=== PATIENT | female | born 1995 | race Caucasian/White ===

== ENCOUNTER 2022-07-26 04:49 | Emergency (ER) | payer BC, SELFPAY ==
[2022-07-26 05:00] VITALS: BP 125/84; PULSE 65; RESP 18; TEMP 36.7; O2SAT 99; BMI 43.0
--- NOTE | 2022-07-26 05:24 | CRLHL7_ITS ---
For Patients: As a result of the Century Cures Act, medical imaging exams and procedure reports are released immediately into your electronic medical record. You may view this report before your referring provider. If you have questions, please contact your health care provider. INDICATION: Left flank pain. TECHNIQUE: CT abdomen and pelvis without contrast, stone protocol. COMPARISON: CT abdomen pelvis September 02, 2020. FINDINGS: Kidney/ureters: Kidneys are normal in caliber. There is a 2 mm stone within the distal left ureter resulting in mild to moderate hydronephrosis. Additional punctate bilateral renal calculi are noted. Liver/gallbladder/bile ducts: Hepatomegaly and hepatic steatosis.. Gallbladder is normal without visualized stones or inflammation. No biliary dilatation. Spleen/pancreas/adrenal glands: The spleen, adrenal glands and pancreas are within normal limits. GI tract: The bowel is unremarkable. Normal appendix. Abdominal wall/omentum/peritoneum: No free air or significant free fluid. No mass or inflammation. Lymph nodes: No lymphadenopathy. Pelvis: Unremarkable pelvis. Lower chest: Unremarkable. IMPRESSION: There is a 2 mm stone within the distal left ureter resulting in mild to moderate hydronephrosis. Additional punctate bilateral renal calculi are noted. Hepatomegaly and hepatic steatosis. Please note that all CT scans at this facility use dose modulation, iterative reconstruction, and/or weight-based dosing when appropriate to reduce radiation dose to as low as reasonably achievable. Dictated by Eddie Garner MD @ 07/26/2022 6:33:09 AM (Electronically Signed)
[2022-07-26] MEDS: ONDANSETRON 2 MG/ML inj 4 MG IVP (05:30)
[2022-07-26] MEDS: 0.9 % SODIUM CHLORIDE 1000 ml 1,000 ML IV (05:30)
[2022-07-26 05:31] VITALS: TEMP 36.7
[2022-07-26] MEDS: KETOROLAC 15 MG/ML inj IVP (05:31)
[2022-07-26 05:44] LABS: Basophils Percent Auto 0.3 % (0.0-3.0); Eosinophils Percent Auto 5.3 % (0.0-7.0); Hematocrit 40.4 % (33.0-51.0); Immature Granulocytes Pct Auto 0.3 %; Lymphocytes Percent Auto 16.5 % (20-44); Mean Corpuscular HGB Conc 32 gm/dL (32-36); Mean Corpuscular Hemoglobin 28 pg (26-34); Mean Corpuscular Volume 86 fL (80-100); Monocytes Percent Auto 6.1 % (0.0-11.0); Neutrophils Percent Auto 71.5 % (42.0-72.0); Platelet Count* 308 K/uL (140-440); RDW Coefficient of Variation % 13.8 % (11.5-15.5); Red Blood Count 4.72 m/uL (4.00-5.20); White Blood Count* 15.02 K/uL (4.50-11.00)
[2022-07-26 05:47] LABS: Appearance Urine Clear (Clear); Bilirubin Urine Negative (Negative); Blood Urine Trace-intact (Negative); Color Urine Yellow (Yellow); Glucose Urine Negative (Negative); Ketones Urine Trace (Negative); Leukocyte Esterase Urine Negative (Negative); Nitrite Urine Negative (Negative); Protein Urine Negative (Negative); Specific Gravity Urine 1.025 (1.000-1.030); Urobilinogen Urine 0.2 (0.2-1.0)
[2022-07-26 05:47] LABS: Slide Review Reflex No
--- NOTE | 2022-07-26 05:47 | ED.GENADULT ---
HPI - General Adult General Chief complaint: Flank Pain Stated complaint: left side abdominal pain, kidney stones Time Seen by Provider: 07/26/22 04:51 Source: patient Mode of arrival: ambulatory Limitations: no limitations History of Present Illness HPI narrative: Patient is a 27-year-old woman who presents for evaluation of left-sided flank and abdominal pain which started 3 hours prior to presentation. She has a history of kidney stones and says this feels similar. She has not had dysuria or hematuria. She has had 2 episodes of vomiting. She denies fevers or chills. Rates pain is severe. Did not take medications at home. Last period was mid June and was normal, no suspicion of . No previous abdominal surgeries, has a history hepatic steatosis and of cyclic vomiting syndrome although she says that she has not had significant problems for the past year. Denies allergies, does not smoke cigarettes. Related Data Home Medications Medication Instructions Recorded Confirmed metformin 1,000 mg tablet 1,000 mg PO BID 07/26/22 07/26/22 methocarbamol 500 mg tablet 500 - 1,000 mg PO 3XD PRN 07/26/22 07/26/22 propranolol 20 mg tablet 20 mg PO BID 07/26/22 07/26/22 sumatriptan succinate 25 mg tablet 25 mg PO DIRECTED 07/26/22 07/26/22 Allergies Allergy/AdvReac Type Severity Reaction Status Date / Time codeine AdvReac Mild Nausea/Vomi Verified 07/26/22 05:02 ting Review of Systems Status of ROS: Reports: 10 or more systems reviewed and unremarkable except as noted in History and below [facility] Medical History (Updated 07/26/22 @ 06:37 by Venita Escudero MD) Asthma ?J45.909 - Unspecified asthma, uncomplicated (ICD-10) Calculus of kidney ?N20.0 - Calculus of kidney (ICD-10) Morbid obesity ?E66.01 - Morbid (severe) obesity due to excess calories (ICD-10) Surgical History History of ankle surgery ?Z98.890 - Other specified postprocedural states (ICD-10) Social History Smoking Status: Never smoker Second hand tobacco smoke exposure: No How often do you have a drink containing alcohol: never How often do you have six or more drinks on one occasion: Never AUDIT-C Alcohol total score: 0 Non-prescribed substance use: denies use Exam Narrative: Exam Narrative: Vital signs as noted above. In general, an alert, nontoxic woman. Head: Normocephalic, atraumatic. Eyes: Pupils are equal reactive. Extraocular movements are full. Conjunctivae are normal. ENT: Mucous membranes are moist. Throat is normal. Neck: Supple without lymphadenopathy. Heart: Regular rate and rhythm. No murmur or rub. Lungs: Clear bilaterally. No increased work of breathing, crackles or wheezes. No CVA tenderness. Abdomen: Soft nondistended. Exam limited by body habitus. Diffuse tenderness left abdomen, no rebound guarding or rigidity. Extremities: Well perfused. No edema. No calf tenderness. Pulses intact. Neurologic: Patient is alert and oriented to person and place. Speech is fluent. Face is symmetric. Moves all extremities equally. Affect: Normal. Skin: Warm and dry. Well perfused. Const: Vital Signs, click to edit/add: Vital Signs - 24 hr 07/26/22 05:00 07/26/22 05:31 07/26/22 06:00 Temperature 98.0 F 98.0 F 98.4 F Pulse Rate [Right Pulse Oximeter] 65 Respiratory Rate 18 Blood Pressure [Ri ght Upper Arm] 125/84 Pulse Oximetry 99 Oxygen Delivery Me thod Room Air 07/26/22 06:00 07/26/22 06:52 07/26/22 06:53 Temperature 98.0 F 98.0 F Pulse Rate [Right Pulse Oximeter] 74 74 Respiratory Rate 18 18 Blood Pressure [Ri ght Upper Arm] 118/74 118/74 Pulse Oximetry 99 99 Oxygen Delivery Me thod Room Air Documenting provider has reviewed patient's vital signs: yes Course Course Hospital Course: We will place an IV, give some fluids, Toradol, Zofran. Labs are ordered, CT scan without contrast to look for kidney stone. I reviewed her previous records, she did have a CT scan 2 years ago which time she had right-sided kidney stones. UA is pending. Other possibilities include ovarian torsion or cyst, bowel obstruction or volvulus, ectopic , pyelonephritis, among others. CT scan by my review shows left-sided hydronephrosis, radiology notes a 2 mm stone left UVJ. Hepatic steatosis is noted, this is old. She did have 4 mg of morphine following the Toradol. No further vomiting. Pain is improved. UA is negative for evidence of infection. CRP unremarkable, white blood cell count is mildly elevated at 15, possibly demargination. No evidence otherwise of infection. She is stable for discharge home. I would anticipate that this will pass without difficulty given its size but if she does not pass the stone in the next few days to week, follow-up with Urology. Otherwise, return for uncontrolled pain, vomiting, fevers. Vital Signs Vital signs: Initial Vital Signs Temperature 98.0 F 07/26/22 05:00 Temperature Source Temporal Artery Scan 07/26/22 05:00 Pulse Rate 65 07/26/22 05:00 Respiratory Rate 18 07/26/22 05:00 Blood Pressure 125/84 07/26/22 05:00 Blood Pressure Mean 97 07/26/22 05:00 Blood Pressure Position Sitting 07/26/22 05:00 Pulse Oximetry 99 07/26/22 05:00 Oxygen Delivery Method Room Air 07/26/22 05:00 Vital Signs Temperature 98.0 F 07/26/22 05:00 Pulse Rate 65 07/26/22 05:00 Respiratory Rate 18 07/26/22 05:00 Blood Pressure 125/84 07/26/22 05:00 Pulse Oximetry 99 07/26/22 05:00 Oxygen Delivery Method Room Air 07/26/22 05:00 Temperature 98.0 F 07/26/22 06:53 Pulse Rate 74 07/26/22 06:53 Respiratory Rate 18 07/26/22 06:53 Blood Pressure 118/74 07/26/22 06:53 Pulse Oximetry 99 07/26/22 06:52 Oxygen Delivery Method Room Air 07/26/22 06:52 Medical Decision Making Lab Data Labs: Lab Results 07/26/22 07/26/22 Range/Units 05:30 05:35 WBC 15.02 H (4.50-11.00) K/uL RBC 4.72 (4.00-5.20) m/uL Hgb 13.0 (12.0-16.0) gm/dL Hct 40.4 (33.0-51.0) % MCV 86 (80-100) fL MCH 28 (26-34) pg MCHC 32 (32-36) gm/dL RDW Coeff of Jay 13.8 (11.5-15.5) % Plt Count 308 (140-440) K/uL Neut % (Auto) 71.5 (42.0-72.0) % Lymph % (Auto) 16.5 L (20-44) % Ford % (Auto) 6.1 (0.0-11.0) % Eos % (Auto) 5.3 (0.0-7.0) % Baso % (Auto) 0.3 (0.0-3.0) % Neut # (Auto) 10.70 H (1.7-7.0) K/uL Lymph # (Auto) 2.50 (0.90-2.90) K/uL Ford # (Auto) 0.90 (0.00-0.90) K/UL Eos # (Auto) 0.80 H (0.00-0.50) K/uL Baso # (Auto) 0.00 (0.00-0.30) K/uL Sodium 138 (135-149) mmol/L Potassium 3.7 (3.6-5.1) mmol/L Chloride 107 (96-114) mmol/L Carbon Dioxide 22 (20-32) mmol/L BUN 16 (5-24) mg/dL Creatinine 1.0 (0.5-1.5) mg/dL Estimated Creat Clear 91.38 Estimated GFR 79 ml/min Glucose 162 H (60-115) mg/dL Calcium 9.1 (8.4-10.6) mg/dL C-Reactive Protein 2.2 H (0.5-1.0) mg/dL Urine Color Yellow (Yellow) Urine Appearance Clear (Clear) Urine pH 6.0 (5.0-8.5) Ur Specific [place] 1.025 (1.000-1.030) Urine Protein Negative (Negative) Urine Glucose (UA) Negative (Negative) Urine Ketones Trace A (Negative) Urine Blood Trace-intact A (Negative) Urine Nitrite Negative (Negative) Urine Bilirubin Negative (Negative) Urine Urobilinogen 0.2 (0.2-1.0) Ur Leukocyte Esterase Negative (Negative) Urine RBC 0-2 (0-2) Urine WBC 0-2 (0-5) Ur Squamous Epith Cells Few (None-Few) Urine Bacteria None (None) Urine HCG, Qual Negative (Negative) Discharge Plan Discharge Clinical Impression: Calculus of distal left ureter Patient Disposition: Home, Self-Care Condition: Improved Instructions: Ureteral Stones (ED) Additional Instructions: Push fluids, strain urine. Ibuprofen 400 mg 3 times daily with food. Oxycodone if needed for more severe pain. Zofran if needed for nausea/vomiting. Return for fevers, chills, uncontrolled vomiting or pain. Your stone is only 2 mm and should pass on its own without difficulty, but if you do not pass it in the next several days to week, follow-up with Urology. Prescriptions: No Action methocarbamol 500 mg tablet 500 - 1,000 mg PO 3XD PRN sumatriptan succinate 25 mg tablet 25 mg PO DIRECTED metformin 1,000 mg tablet 1,000 mg PO BID propranolol 20 mg tablet 20 mg PO BID Follow Up/Referrals: Krunal Yan MD [Primary Care Provider] - Stand Alone Forms: imgix Info Instructions
[2022-07-26 05:55] LABS: RBC Urine 0-2 (0-2); WBC Urine 0-2 (0-5)
[2022-07-26 05:56] LABS: Squamous Epithelial Cell Urine Few (None-Few); Ur HCG Qualitative* Negative (Negative)
--- OUTSIDE RECORDS SUMMARY | 2022-07-26 05:58 | XMS_ITS | Continuity of Care Document ---
Author Name Unknown Organization [facility] Address [address] [place] [address] Care Team Providers Care Development Manager Name Role Phone [facility] Unavailable Unav ailable Procedures Procedure Date NEEDLE LOCALIZATION BY XRAY [id number]/INJECT, JOINT/BURSA Withou t Ultrasound DRAIN/INJECT, JOINT/BURSA Without Ultras ound MAJOR JOINT OR BURSA INJ WITH ULTRASOUND MAJOR JOINT OR BURSA INJ WITH ULTRASOUND Inj for sacroiliac jt anesth Advance Directives Directive Yes / No Effective Date File Name No Information Encounters Encounter Description Practice Location Reason(s) For Visit Diagnoses Date Provider Providers Copied on Encounter [facility], [address] [place] [address], [id number], [facility] No Information [facility]. [address] [place] [address], [id number], [place]. tel:[phone] Referring Provider: Zina Hahn, [address] [place], [address]. tel:[phone] [facility], [address] [place] [address], [id number], [facility] No Information [facility]. [address] [place] [address], [id number], [place]. tel:[phone] Referring Provider: Federica Molina, [address] [place], [address]. tel:[phone] [facility] [place], [address] [facility] [place], [place], [id number], [facility] [place] No Information [facility] [place]. [address] [facility] [place], [id number], . tel:[phone] Referring Provider: Zina Hahn, [address] [place], [address]. tel:[phone] Family History Family Member Type Diagnosis Age At Onset No Information Payers Payer name Insurance type Covered constitution party ID Del gutierrez(s) Blue Plus Medicaid [id number] Social History Type Description Quantity Date Captured Comments Sex Female Smoking Status No Information Chief Complaint And Reason For Visit No Information Reason For Referral Reason For Referral No Information Plan Of Treatment Date Type Action Status No Information History Of Present Illness Encounter Date Complaint History Of Prese nt Illness No Information Functional Status Date Functional Assessmen t No Information Instructions Date Instruction Additional Infor mation No Information Assessments Type Assessment Date No Information Patient Care Teams Name Effective Dates (start - stop) Status Members No Information
--- OUTSIDE RECORDS SUMMARY | 2022-07-26 05:58 | XMS_ITS | Continuity of Care Document ---
Author Name Unknown Organization [facility] Address [address] [place] [address] [address] Phone Care Team Providers Care Crushing Mill Operator Name Role Phone [facility] Unavailable Unava ilable Procedures Procedure Date MAJOR JOINT OR BURSA INJ WITH ULTRASOUND MAJOR JOINT OR BURSA INJ WITH ULTRASOUND Advance Directives Directive Yes / No Effective Date File Name No Information Encounters Encounter Description Practice Location Reason(s) For Visit Diagnoses Date Provider Providers Copied on Encounter [facility], [address] [place] [address], [id number], [place] tel:[phone] [facility] No Information 2 [facility]. [address] [place] [address], [id number], [place]. tel:[phone] Referring Provider: Federica Molina, [address] [place], [address] . tel:[phone] Family History Family Member Type Diagnosis Age At Onset No Information Payers Payer name Insurance type Covered green party ID Authoriza tion(s) Blue Plus Medicaid [place] [id number] Social History Type Description Quantity Date Captured [...]
--- OUTSIDE RECORDS SUMMARY | 2022-07-26 05:58 | XMS_ITS | Continuity of Care Document ---
Author Name Unknown Organization [facility] enter Address [address] [place] [address] [address] Phone Care Team Providers Care System Admin Name Role Phone [facility] Unavailable Unava ilable Procedures Procedure Date MAJOR JOINT OR BURSA INJ WITH ULTRASOUND MAJOR JOINT OR BURSA INJ WITH ULTRASOUND Advance Directives Directive Yes / No Effective Date File Name No Information Encounters Encounter Description Practice Location Reason(s) For Visit Diagnoses Date Provider Providers Copied on Encounter [facility], [address] [place] [address], [id number], [place] tel:[phone] [facility] No Information [address] [facility]. [address] [place] [address], [id number], [place]. tel:[phone] Referring Provider: Federica Molina, [address] [place], [address] . tel:[phone] Family History Family Member Type Diagnosis Age At Onset No Information Payers Payer name Insurance type Covered constitution party ID Authoriza tion(s) Blue Plus Medicaid BL [id number] Social History Type Description Quantity Date Captured [...]
--- OUTSIDE RECORDS SUMMARY | 2022-07-26 05:58 | XMS_ITS | Continuity of Care Document ---
Author Name Unknown Organization [facility] Address [address] [address] [place] [address] Phone Care Team Providers Care Shrimper Name Role Phone Chris Lucero MD Unavailable Unavailable Allergies, Adverse Reactions, Alerts Substance Reaction Status Criticality lactose Active No Information soy Active No Information latex Active No Information Medications Medication Instructions Dosage Effective Dates (start - stop) Status Comments propranolol 20 mg tablet take 1 tablet by mouth twice daily for cyclic vomiting. - Active ondansetron HCl 8 mg tablet take 1 tablet by oral route every 8 hours as needed for nausea - Active metformin 1,000 mg tablet take 1 tablet by oral route 2 times every day with morning and evening meals 1000 MG - Active ProAir RespiClick 90 mcg/actuation breath activated inhale 2 puff by inhalation route every 4 - 6 hours as needed 180 MCG - Active magnesium 250 mg tablet take 1 tablet by oral route every day 1 tablet - Active CITRACAL-D3 (unknown strength) take 1 tablet by oral route every day Not Available - Active Vitamin D3 5,000 unit tablet take 1 tablet by oral route every day 1 tablet - Active multivitamin tablet take 1 tablet by oral route every day 1 tablet - Active oxycodone 5 mg capsule take 1 capsule by oral route every 6 hours as needed for pain 5 MG - Active Procedures Procedure Date Ugi Endo; W/bx 1/mx Level Iv-surg Path Gross/micro 19 Office Cons New/estab Mod Advance Directives Directive Yes / No Effective Date File Name No Information Encounters Encounter Description Practice Location Reason(s) For Visit Diagnoses Date Provider Providers Copied on Encounter [facility], [address] [address], [place], [id number], [place] tel:[phone] [facility] No Information 0 Nic Perez. [address] [place] [address], [facility], [facility] [place], [id number] , [place]. tel: [phone] [facility], [address] [address], [place], [id number], [place] tel:[phone] [facility] No Information 0 Nic Perez. [address] [place] [address], [place] [address], [place], [id number] , [place]. tel: [phone] [facility], [address] [address], [place], [id number], [place] tel:[phone] [facility] Cyclical vomiting, not intractableDiarrhe a, unspecifiedNausea with vomiting, unspecifiedLower abdominal pain, unspecifiedDiarrhe a, unspecified 9 Nic Perez. [address] [place] [address], [place] [address], [facility] [place], [id number] , [place]. tel: [phone] Referring Provider: Referral Self. Office Cons New/estab Mod [facility], [address] [address], [place], [id number], [place] tel:[phone] [facility] GI Symptoms or Concerns (chief complaint) Lower abdominal painDiarrhea, unspecified typeNon-intractabl e cyclical vomiting with nauseaDietary counseling and surveillance 9 Nic Perez. [address] [place] [address], [place] [address], [facility] [place], [id number] , [place]. tel: [phone] Referring Provider: Krunal Salcido, [address] [place] [address], [id number]. tel:[phone] Family History Family Member Type Diagnosis Age At Onset Father Problem (finding) diabetes mellitus type 2 Payers Payer name Insurance type Covered green party ID Del gutierrez(s) [place] [facility] [id number] Social History Type Description Quantity Date Captured Comments Alcohol Use Details Unknown Caffeine Use Details Unknown Tobacco Use Status No Information Smoking Status No Information Sex Female Chief Complaint And Reason For Visit No Information Reason For Referral Reason For Referral No Information Plan Of Treatment Date Type Action Status Goal Lifestyle education regardin g diet completed Referral Ordered: EGD Appointment date/timeframe: 09/01/2018 ordered History Of Present Illness Encounter Date Complaint History Of Prese nt Illness GI Symptoms or Concerns I had th e pleasure of meeting Ms. Indira Akins, a 23-year-old woman, seen in consultation at the request of Dr. Krunal Yan for evaluation of abdominal pain, irregular bowel habits with tendency towards diarrhea, nausea and vomiting, fatty liver disease, and irregular abdominal imaging.Indira says that her symptoms began approximately 7 months ago, and were initially intermittent, but now occur on a daily basis. She describes a host of symptoms primarily focused on severe lower abdominal pain bilaterally, loose bowel movements around 2 or 3 times a day, fairly constant nausea with intermittent vomiting of food that she ate earlier.Her abdominal pain she describes as sharp and severe. Interestingly, she has pain with simply light touching of her skin around her abdomen, let alone when palpation is deeper. She can wake up with the pain and it can be present throughout the day. No specific triggers or relieving factors other than oxycodone, which she has been using to ma Functional Status Date Functional Assessmen t No Information Instructions Date Instruction Additional Infor barbara 1. We will perform a n upper endoscopy to help move forward the evaluation of her nausea, vomiting, and abdominal pain.2. I am going to empirically start her on propranolol for cyclic vomiting syndrome.3. If no improvement with propranolol and if the EGD is nondiagnostic, then either a higher dose of propranolol versus trial of nortriptyline.4. She may benefit from going to pain management clinic for abdominal wall injection.5. With regard to the inpatient colonoscopy, frankly I am not sure that this can be accomplished. I am seeing primary care providers that will be able to admit patients who are paraplegic or in skilled nursing for inpatient colonoscopy preparation, but aside from that, I am not sure that her insurance would cover a colonoscopy as an inpatient. We spent time today discussing various different preparations that we could perform as an outpatient to do a colonoscopy and she in a fact refused all of these.I will see her back in about a month and I will be in touch with her when I have the results of her endoscopy.Thank you so much for involving me in the care of Ms. Akins. Related to Lower abdominal pain Lifestyle education regarding di et Related to Dietary counseling and surveillance Assessments Type Assessment Date No Information Patient Care Teams Name Effective Dates (start - stop) Status Members No Information
--- OUTSIDE RECORDS SUMMARY | 2022-07-26 05:58 | XMS_ITS | Continuity of Care Document ---
Author Name Unknown Organization [facility] Address [address] [place] [address] Care Team Providers Care District Commercial Superintendent Name Role Phone [facility] Unavailable Unav ailable Procedures Procedure Date NEEDLE LOCALIZATION BY XRAY [id number]/INJECT, JOINT/BURSA Withou t Ultrasound DRAIN/INJECT, JOINT/BURSA Without Ultras ound MAJOR JOINT OR BURSA INJ WITH ULTRASOUND MAJOR JOINT OR BURSA INJ WITH ULTRASOUND Inj for sacroiliac jt anesth Advance Directives Directive Yes / No Effective Date File Name No Information Encounters Encounter Description Practice Location Reason(s) For Visit Diagnoses Date Provider Providers Copied on Encounter [facility], [address] [place] [address], [id number], [facility] No Information [facility]. [address] [place] [address], [id number], [place]. tel:[phone] Referring Provider: Zina Hahn, [address] [place], [address]. tel:[phone] [facility], [address] [place] [address], [id number], [facility] No Information [facility]. [address] [place] [address], [id number], [place]. tel:[phone] Referring Provider: Federica Molina, [address] [place], [address]. tel:[phone] [facility] [place], [address] [facility] [place], [place], [id number], [facility] [place] No Information [facility] [place]. [address] [facility] [place], [id number], . tel:[phone] Referring Provider: Zina Hahn, [address] [place], [address]. tel:[phone] Family History Family Member Type Diagnosis Age At Onset No Information Payers Payer name Insurance type Covered democrat ID Del gutierrez(s) Blue Plus Medicaid [id number] Social History Type Description Quantity Date Captured [...]
--- OUTSIDE RECORDS SUMMARY | 2022-07-26 05:58 | XMS_ITS | Continuity of Care Document ---
Author Name Unknown Organization [facility] zacarias Address [address] [place] [address] Phone Care Team Providers Care Route Contractor Name Role Phone Zina Hahn DO Unavailable Unavailable Allergies, Adverse Reactions, Alerts Substance Reaction Status Criticality lactose Active No Information hydrocodone Active No Information latex Active No Information Medications Medication Instructions Dosage Effective Dates (start - stop) Status Comments sumatriptan 25 mg tablet take 1 tablet by oral route once with fluids may repeat after 2 hours if headache returns, not to exceed 200mgin 24hrs - Active tizanidine 2 mg tablet take 1 - 2 tablet by ORAL route at bedtime as needed - Active methocarbamol 500 mg tablet take 1-2 tablet by ORAL route 3 times every day PRN - Active methocarbamol 500 mg tablet take 1 tablet by ORAL route 1-3 times every day PRN - Active topiramate 50 mg tablet TAKE 1 TABLET BY MOUTH TWICE DAILY - Active metformin 1,000 mg tablet take 1 tablet by oral route 2 times every day with morning and evening meals 1000 MG - Active propranolol 20 mg tablet take 1 tablet by oral route 2 times every day 20 MG - Active Procedures Procedure Date DRAIN/INJECT, JOINT/BURSA NEEDLE LOCALIZATION BY Flouroscopy Drug Urine Toxology With Chromatography Drug test def 1-7 classes Foll-up eval q3mo opiod tx OFFICE/OUTPATIENT VISIT, EST DRAIN/INJECT, JOINT/BURSA Foll-up eval q3mo opiod tx OFFICE VISIT, EST TELEMEDICINE 22 Foll-up eval q3mo opiod tx OFFICE/OUTPATIENT VISIT, EST BILATERAL MAJOR JOINT/BURSA DRAIN/INJ WI TH ULTRASO BILATERAL MAJOR JOINT/BURSA DRAIN/INJ WI TH ULTRASO Foll-up eval q3mo opiod tx OFFICE VISIT, EST TELEMEDICINE Foll-up eval q3mo opiod tx OFFICE VISIT, EST TELEMEDICINE Foll-up eval q3mo opiod tx OFFICE VISIT, EST TELEMEDICINE Injection Sacroiliac Right OFFICE/OUTPATIENT VISIT, EST Foll-up eval q3mo opiod tx OFFICE VISIT, EST TELEMEDICINE Foll-up eval q3mo opiod tx OFFICE VISIT, EST TELEMEDICINE Foll-up eval q3mo opiod tx OFFICE VISIT, EST TELEMEDICINE Foll-up eval q3mo opiod tx OFFICE/OUTPATIENT VISIT, EST ROUTINE BLOOD DRAW OFFICE/OUTPATIENT VISIT, EST OFFICE/OUTPATIENT VISIT, EST OFFICE/OUTPATIENT VISIT, NEW Drug Urine Toxology With Chromatography Advance Directives Directive Yes / No Effective Date File Name No Information Encounters Encounter Description Practice Location Reason(s) For Visit Diagnoses Date Provider Providers Copied on Encounter [facility], [address], [place], [id number] , [place] tel:[phone] [facility] [place] Pain in right hipPain in left hip 3 Jovani Izaguirre. [address], [place], [id number], [place]. tel:[phone] Referring Provider: Cali White, [address] [place] [address], [id number]. tel:[phone] [facility], [address] [place] [address], [id number] , [place] tel:[phone] [facility] [place] Pain in left hipPain in right hip Jun- 3 Dago Katherine. [address] [place] [address], [id number], [place]. tel:[phone] [place] [address] Pain Clinic, [address] [place] [address], [id number] , [place] tel:[phone] [facility] [place] No Information 3 Dago Katherine. [address] [place] [address], [id number], [place]. tel:[phone] OFFICE/OUTPAT IENT VISIT, EST [facility], [address] [place] [address], [id number] , [place] tel:[phone] [facility] [place] right hip pain (chief complaint) Chronic migraine without aura, intractable, without status migrainosusCyc lical vomiting w/ refractory migraineChroni c pain syndromePain in left shoulderPain in left hipPain in right hipSacroiliiti s, not elsewhere classifiedLow back pain, unspecifiedTro chanteric bursitis, right hipTrochanteri c bursitis, left hipMyalgia, other siteGeneralize d abdominal painOther care home (current) drug therapyEncount er for therapeutic drug level monitoring 3 Dago Katherine. [address] [place] [address], [id number], [place]. tel:[phone] Referring Provider: Cali White, [address] [place] [address], [id number]. tel:[phone] [facility], [address] [place] [address], [id number] , [place] [phone] [facility] Pain in right hipPain in left hip 2 Jesse Stallworth. [address] [place] [address], [id number], [place]. tel:[phone] Referring Provider: Cali White, [address] [place] [address], [id number]. tel:[phone] OFFICE VISIT, EST TELEMEDICINE [facility], [address] [place] [address], [id number] , [place] [phone] [facility] Lori right hip pain (chief complaint) Chronic migraine without aura, intractable, without status migrainosusCyc lical vomiting w/ refractory migraineChroni c pain syndromePain in left shoulderSacroi liitis, not elsewhere classifiedLow back pain, unspecifiedTro chanteric bursitis, right hipTrochanteri c bursitis, left hipMyalgia, other siteGeneralize d abdominal painOther extermination supervisor (current) drug therapyPain in left hipPain in right hip 0 2 Dago Katherine. [address] [place] [address], [id number], [place]. tel:[phone] Referring Provider: Cali White, [address] [place] [address], [id number]. tel:[phone] [facility], [address] [place] [address], [id number] , [place] tel:[phone] [facility] Low back pain, unspecifiedTro chanteric bursitis, left hipTrochanteri c bursitis, right hip 2 Dago Katherine. [address] [place] [address], [id number], [place]. tel:[phone] OFFICE/OUTPAT IENT VISIT, [facility], [address] [place] [address], [id number] , [place] [phone] [facility] [place] right hip pain (chief complaint) Cyclical vomiting w/ refractory migraineChroni c pain syndromePain in left shoulderSacroi liitis, not elsewhere classifiedLow back pain, unspecifiedTro chanteric bursitis, right hipTrochanteri c bursitis, left hipGeneralized abdominal painOther extermination supervisor (current) drug therapyMyalgia , other siteChronic migraine without aura, intractable, without status migrainosus 2 Dago Katherine. [address] [place] [address], [id number], [place]. tel:[phone] Referring Provider: Cali White, [address] [place] [address], [id number]. tel:[phone] [facility], [address] [place] [address], [id number] , [place] tel:[phone] [facility] Trochanteric bursitis, right hipTrochanteri c bursitis, left hip Apr-2 0 2 Jesse Stallworth. [address] [place] [address], [id number], [place]. tel:[phone] Referring Provider: Cali White, [address] [place] [address], [id number]. tel:[phone] [facility], [address] [place] [address], [id number] , [place] tel:[phone] [facility] Trochanteric bursitis, left hipTrochanteri c bursitis, right hip Apr-0 2 Dago Katherine. [address] [place] [address], [id number], [place]. tel:[phone] [facility], [address] [place] [address], [id number] , [place] tel:[phone] [facility] [place] No Information 2 Jesse Stallworth. [address] [place] [address], [id number], [place]. tel:[phone] Referring Provider: Cali White, [address] [place] [address], [id number]. tel:[phone] OFFICE VISIT, EST TELEMEDICINE [facility], [address] [place] [address], [id number] , [place] tel:[phone] [facility] [place] right hip pain (chief complaint) Chronic pain syndromeGenera lized abdominal painCyclical vomiting w/ refractory migraineLow back pain, unspecifiedPai n in left shoulderSacroi liitis, not elsewhere classifiedOthe r extermination supervisor (current) drug therapyTrochan teric bursitis, right hipTrochanteri c bursitis, left hip 1 Dago Katherine. [address] [place] [address], [id number], [place]. tel:[phone] OFFICE VISIT, EST TELEMEDICINE [facility], [address] [place] [address], [id number] , [place] tel:[phone] [facility] [place] right hip pain (chief complaint) Chronic pain syndromeGenera lized abdominal painCyclical vomiting w/ refractory migraineLow back painPain in left shoulderSacroi liitis, not elsewhere classifiedOthe r care home (current) drug therapy 1 Dago Katherine. [address] [place] [address], [id number], [place]. tel:[phone] Referring Provider: Cali White, [address] [place] [address], [id number]. tel:[phone] OFFICE VISIT, EST TELEMEDICINE [facility], [address] [place] [address], [id number] , [place] tel:[phone] [facility] right hip pain (chief complaint) Chronic pain syndromeGenera lized abdominal painCyclical vomiting w/ refractory migraineLow back painPain in left shoulderOther care home (current) drug therapySacroil iitis, not elsewhere classified 1 Dago Katherine. [address] [place] [address], [id number], [place]. tel:[phone] Referring Provider: Cali hWite, [address] [place] [address], [id number]. tel:[phone] [facility], [address] [place] [address], [id number] , [place] tel:[phone] [facility] [place] Sacroiliitis, not elsewhere classified 1 Jovani Izaguirre. [address] [place] [address], [id number], [place]. tel:[phone] Referring Provider: Cali White, [address] [place] [address], [id number]. tel:[phone] OFFICE/OUTPAT IENT VISIT, [facility], [address] [place] [address], [id number] , [place] tel:[phone] [facility] right hip pain (chief complaint) Sacroiliitis, not elsewhere classifiedChro zacarias pain syndromeGenera lized abdominal painCyclical vomiting w/ refractory migraineLow back painPain in left shoulderOther extermination supervisor (current) drug therapy 0- 1 Tata Jay. [address] [place] [address], [id number], [place]. tel:[phone] Referring Provider: Cali White, [address] [place] [address], [id number]. tel:[phone] OFFICE VISIT, [facility], [address] [place] [address], [id number] , [place] tel:[phone] [facility] Abdominal pain (chief complaint) Chronic pain syndromeGenera lized abdominal painCyclical vomiting w/ refractory migraineLow back painPain in left shoulderLong term (current) use of opiate analgesic 0 Dago Katherine. [address] [place] [address], [id number], [place]. tel:[phone] Referring Provider: Cali White, [address] [place] [address], [id number]. tel:[phone] OFFICE VISIT, [facility], [address] [place] [address], [id number] , [place] tel:[phone] [facility] Abdominal pain (chief complaint) Chronic pain syndromeGenera lized abdominal painCyclical vomiting w/ refractory migraineLow back painLong term (current) use of opiate analgesicPain in left shoulder 0 Dago Katherine. [address] [place] [address], [id number], [place]. tel:[phone] Referring Provider: Cali White, [address] [place] [address], [id number]. tel:[phone] OFFICE VISIT, [facility], [address] [place] [address], [id number] , [place] tel:[phone] [facility] Abdominal pain (chief complaint) Chronic pain syndromeGenera lized abdominal painCyclical vomiting w/ refractory migraineLow back painLong term (current) use of opiate analgesic 0 Dago Katherine. [address] [place] [address], [id number], [place]. tel:[phone] Referring Provider: Cali White, [address] [place] [address], [id number]. tel:[phone] OFFICE/OUTPAT IENT VISIT, [facility], [address] [place] [address], [id number] , [place] tel:[phone] [facility] [place] Abdominal pain (chief complaint) Chronic pain syndromeGenera lized abdominal painCyclical vomiting w/ refractory migraineLong term (current) use of opiate analgesicLow back painEncounter for therapeutic drug level monitoring 0 Dago Katherine. [address] [place] [address], [id number], [place]. tel:[phone] Referring Provider: Cali White, [address] [place] [address], [id number]. tel:[phone] OFFICE/OUTPAT IENT VISIT, [facility], [address] [place] [address], [id number] , [place] tel:[phone] [facility] [place] Abdominal pain (chief complaint) Generalized abdominal painCyclical vomiting w/ refractory migraineLong term (current) use of opiate analgesic Sep-0 -201 9 Dago Katherine. [address] [place] [address], [id number], [place]. tel:[phone] Referring Provider: Cali White, [address] [place] [address], [id number]. tel:[phone] OFFICE/OUTPAT IENT VISIT, [facility], [address] [place] [address], [id number] , [place] tel:[phone] [facility] [place] Abdominal pain (chief complaint) Generalized abdominal painCyclical vomiting w/ refractory migraineOther care home (current) drug therapyLong term (current) use of opiate analgesic Dago Katherine. [address] [place] [address], [id number], [place]. tel:[phone] Referring Provider: Cali White, [address] [place] [address], [id number]. tel:[phone] OFFICE/OUTPAT IENT VISIT, [facility], [address] [place] [address], [id number] , [place] [phone] [facility] [place] Abdominal pain (chief complaint) Chronic pain syndromeEncoun ter for therapeutic drug level monitoringOthe r care home (current) drug therapyGeneral ized abdominal painCyclical vomiting w/ refractory migraine 9 No Information Referring Provider: ANNEL Castillo MELISSA [address], [place], [address]. tel:[phone] Family History Family Member Type Diagnosis Age At Onset No Information Payers Payer name Insurance type Covered green party ID Authoriza brenda(s) [employer] [id number] Social History Type Description Quantity Date Captured Comments Sex Female Smoking Status No Information Chief Complaint And Reason For Visit No Information Reason For Referral Reason For Referral No Information Plan Of Treatment Date Type Action Status Goal Order Annual PT. Due on due Goal AST (SGOT). Due on due Goal OARS. 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 Due on 023 due Goal Creatinine. Due on due Goal ALT (SGPT). Due on due Goal [place] Paperwork. Due on due Goal UDT. Due on due Goal Height. Due on d ue Goal Weight. Due on d ue Goal Hepatitis C screening. Due o n due Goal PHQ-9. Due on du e Goal Update Social History. Due o n due Goal Review Allergy List. Due on due Goal Unhealthy drug u se screening. Due on due Goal Medication Recon ciliation. Due on due Goal Tobacco Use. Due on 023 due Goal OARS. Due on due Goal [place] Paperwork. Due on due Goal UDT. Due on due Goal ALT (SGPT). Due on due Goal AST (SGOT). 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 Due on due Goal Creatinine. Due on due Goal Order Annual PT. Due on due Goal Height. Due on d ue Goal Update Social History. Due o n due Goal Unhealthy drug u se screening. Due on due Goal Tobacco Use. Due on 023 due Goal Review Allergy List. Due on due Goal Hepatitis C screening. Due o n due Goal PHQ-9. Due on du e Goal Weight. Due on d ue Goal Medication Recon ciliation. 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 Due on due Goal UDT. Due on due Goal ALT (SGPT). Due on due Goal Order Annual PT. Due on due Goal Creatinine. Due on due Goal OARS. Due on due Goal [place] Paperwork. Due on due Goal AST (SGOT). Due on due Goal Height. Due on d ue Goal Hepatitis C screening. Due o n due Goal Tobacco Use. Due on due Goal Update Social History. Due o n due Goal Review Allergy List. Due on due Goal Weight. Due on d ue Goal PHQ-9. Due on du e Goal Unhealthy drug u se screening. Due on due Goal Medication Recon ciliation. Due on due Goal Order Annual PT. Due on due Goal UDT. Due on due Goal [place] Paperwork. Due on due Goal OARS. Due on due Goal Creatinine. 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 Due on due Goal AST (SGOT). Due on due Goal ALT (SGPT). Due on due Goal Tobacco Use. Due on due Goal Medication Recon ciliation. Due on due Goal Height. Due on d ue Goal Weight. Due on d ue Goal Unhealthy drug u se screening. Due on due Goal Update Social History. Due o n due Goal Review Allergy List. Due on due Goal Hepatitis C screening. Due o n due Goal PHQ-9. 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 Due on due Goal Creatinine. Due on due Goal [place] Paperwork. Due on due Goal ALT (SGPT). Due on due Goal AST (SGOT). Due on due Goal UDT. Due on due Goal Order Annual PT. Due on due Goal OARS. Due on due Goal Review Allergy List. Due on due Goal Tobacco Use. Due on due Goal Unhealthy drug u se screening. Due on due Goal Update Social History. Due o n due Goal Hepatitis C screening. Due o n due Goal Height. Due on d ue Goal Weight. Due on d ue Goal PHQ-9. Due on du e Goal Medication Recon ciliation. Due on due Goal [place] Paperwork. Due on due Goal UDT. Due on due Goal Order Annual PT. 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 Due on due Goal AST (SGOT). Due on due Goal OARS. Due on due Goal Creatinine. Due on due Goal ALT (SGPT). Due on due Goal Weight. Due on d ue Goal Height. Due on d ue Goal Review Allergy List. Due on due Goal Tobacco Use. Due on due Goal Medication Recon ciliation. Due on due Goal Hepatitis C screening. Due o n due Goal PHQ-9. Due on du e Goal Update Social History. Due o n due Goal Unhealthy drug u se screening. Due on due Goal Creatinine. Due on due Goal [place] Paperwork. Due on due Goal Order Annual PT. 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 Due on due Goal AST (SGOT). Due on due Goal OARS. Due on due Goal ALT (SGPT). Due on due Goal UDT. Due on due Goal Weight. Due on d ue Goal Tobacco Use. Due on due Goal Hepatitis C screening. Due o n due Goal Review Allergy List. Due on due Goal Height. Due on d ue Goal PHQ-9. Due on du e Goal Unhealthy drug u se screening. Due on due Goal Update Social History. Due o n due Goal Medication Recon ciliation. Due on due Goal ALT (SGPT). Due on due Goal UDT. Due on due Goal AST (SGOT). Due on due Goal [place] Paperwork. Due on due Goal OARS. 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 Due on due Goal Order Annual PT. Due on due Goal Creatinine. Due on due Goal Height. Due on d ue Goal PHQ-9. Due on du e Goal Weight. Due on d ue Goal Update Social History. Due o n due Goal Medication Recon ciliation. Due on due Goal Review Allergy List. Due on due Goal Tobacco Use. Due on due Goal Height. Due on d ue Goal PHQ-9. Due on du e Goal Weight. Due on d ue Goal Update Social History. Due o n due Goal Medication Recon ciliation. Due on due Goal Review Allergy List. Due on due Goal Tobacco Use. Due on due Goal ALT (SGPT). Due on due Goal UDT. Due on due Goal AST (SGOT). Due on due Goal [place] Paperwork. Due on due Goal OARS. 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 Due on due Goal Order Annual PT. Due on due Goal Creatinine. Due on due Referral Ordered: MRI LUMBAR SPINE W/O DYE ordered Future Order: Lab Order COMPLIAN CE DRUG ANALYSIS, URINE, WITH MED REPORT ([id number]), Ordered on: Ordered Future Order: Lab Order Drug Lora t Def 22+ Classes ([id number]), Ordered on: Ordered History Of Present Illness Encounter Date Complaint History Of Prese nt Illness Comments: Indira rehman resents for a follow up and medications refill for ongoing abdominal and hip pain.Abdominal, and L shoulder pain have been overall stable since last seen. Lower back pain has been worse. Typical flares depending on activity level. Following with [facility] regarding Bilateral hip (R>) pain and was advised of early onset arthritis. Bilateral hip joint injections on 03/26/22 with 60% relief. Participates in HEP as able. Ongoing relief from medical cannabis. Migraines have been worse recently. Neurology consult is scheduled for next month.No further questions or concerns. right hip pain Duration chronic . The problem is fluctuating. Location of pain is right. Pertinent negatives include fever. right hip pain Severity level i s moderate. Duration chronic. The problem is worsening. Location of pain is right. Comments: Indira rehman resents for a virtual follow up and medications refill for ongoing abdominal and hip pain.Low back, abdominal, and L shoulder pain have been overall stable since last seen. Typical flares depending on activity level. Following with [facility] regarding Bilateral hip (R>) pain and was advised of early onset arthritis. Recently completed joint injections with benefit. Requesting to repeat these through [facility] when able. Participates in HEP as able. Ongoing relief from medical cannabis. Migraines have been worse recently. Open to neurology consult as discussed today.No further questions or concerns. right hip pain Severity level i s moderate. Duration chronic. The problem is fluctuating. It occurs constantly. Location of pain is right. The client describes the pain as sharp and tingling. Symptom is aggravated by sitting, bending, lifting, housework, movement and prolonged positions. Relieving factors include ice, physical therapy, stretching, changing positions, heat, lying down, massage and walking. Pertinent negatives include fever. Comments: Indira rehman resents for a follow up and medications refill for ongoing abdominal and hip pain.Low back, abdominal, and L shoulder pain have been overall stable since last seen. Bilateral hip (R>) pain has been worse. Repeat injections on 05/01 and 08/05 did not offer the same degree of relief as they have in the past. Also notes muscle relaxants haven't been as helpful to her pain. Participates in HEP as able. Actively in PT.No further questions or concerns. right hip pain Severity level i s moderate. Duration chronic. The problem is worsening. It occurs constantly. Location of pain is right. The patient describes the pain as an ache, sharp, tingling and numbness. Symptom is aggravated by lifting weight, prolonged positions and housework. Relieving factors include ice, rest, physical therapy, stretching, changing positions, heat, lying down, massage, rx meds and sitting. right hip pain (comments) Indira rehman resents for a virtual follow up and medications refill for ongoing abdominal and hip pain.Low back, abdominal, and L shoulder pain have been overall stable since last seen. Flares noted to migraines/vomiting with heat. Bilateral hip pain has been more bothersome as she has not been able to repeat GT bursa injections through ortho. Inquires if she can pursue these through [facility]. Participates in HEP as able. Actively in PT.No further questions or concerns. right hip pain (comments) Indira rehman resents for a virtual follow up and medications refill for ongoing abdominal and hip pain.Low back, abdominal, L shoulder, and hip pain have been overall stable since last seen. Flares noted to migraines/vomiting with heat. She consulted with ortho regarding hip pain and completed imaging and GT bursa injection with significant relief. Participates in HEP as able. Actively in PT and is requesting addition sessions today.No further questions or concerns. right hip pain Duration chronic . The problem is stable. It occurs constantly. Location of pain is right. The patient describes the pain as an ache, sharp and tingling. numbness. Symptom is aggravated by bending, lifting, housework, movement and prolonged positions. Relieving factors include rest, physical therapy, stretching, changing positions, massage and sitting. right hip pain Duration chronic . The problem is stable. The pain is recurring. Location of pain is right. The patient describes the pain as an ache, numbness, sharp and tingling. Symptom is aggravated by lifting weight, bending, housework, movement and prolonged positions. Relieving factors include ice, rest, physical therapy, stretching, changing positions, chiropractic, heat, lying down, massage, rx meds and walking. right hip pain (comments) Indira rehman resents for a virtual follow up and medications refill for ongoing abdominal pain.Notes she has stopped taking oxycodone. R SI joint injection on 06/12 with significant relief for 1 week, now wearing off. Feels like the pain is deeper in the hip joint. Expresses interest to return to PT at this time. Also open to referral to hip specialist as discussed today. Participates in HEP as able. No further questions or concerns. right hip pain (comments) Indira rehman resents for follow-up for ongoing right hip pain. She reports pain in the right low back and buttocks. Denies groin pain. Radiates down her posterior thigh. Described as aching and sharp. Worse with prolonged sitting and laying. Worse when sitting to standing position.She is doing ongoing PT sessions with Dr. Sukumar Pettit at [facility]. Abdominal and L shoulder pain is overall stable. Tizanidine is most helpful in the evenings for pain and sleep, but she is unable to tolerate this during the day.No further questions or concerns. right hip pain Severity level i s severe. Duration chronic. The problem is worsening. It occurs constantly. Location of pain is right lateral hip, posterior hip. There is radiation of pain to the right. The patient describes the pain as an ache and sharp. Symptom is aggravated by climbing stairs, lying down, prolonged standing and sitting. Relieving factors include physical therapy and stretching. Abdominal pain Severity is 7. D uration is chronic. It occurs constantly. The problem is unchanged. The patient describes it as aching, sharp, tingling and numbness. Symptom is aggravated by bending over, lifting, housework, movement and prolonged positions. Relieving factors include lying down, rest, changing positions, heat, massage, rx meds and PT. Abdominal pain (comments) Indira rehman resents for a virtual follow up and medications refill for ongoing abdominal pain.Reports oxycodone has not been very beneficial to her pain, therefore she has not been utilizing it as much which explains her surplus today. Significant relief with PT. Abdominal, back, and L shoulder pain is overall stable. Participates in HEP as able. Tizanidine is most helpful in the evenings for pain and sleep, but she is unable to tolerate this during the day.No further questions or concerns. Abdominal pain Severity is 7. D uration is chronic. It occurs constantly. The problem is unchanged. The patient describes it as aching, sharp and numbness. Symptom is aggravated by movement, lying down, housework, lifting and prolonged positioning. Relieving factors include changing positions, heat, ice, massage and rx meds. Abdominal pain (comments) Eliezer rodríguez is here for follow up and medications refill for ongoing abdominal pain.Reports she has been following with a physical therapist regarding pinched nerve in her left shoulder which she believes is a contributing factor to her back and migraine pain. Pain has somewhat improved, however migraines have persisted if not worsened. Pending results from PT, she plans to pursue imaging. Abdominal pain has remained stable. No further questions or concerns. Abdominal pain Severity is 6. D uration is chronic. It occurs constantly. The problem is worse. The patient describes it as aching, burning and sharp. Symptom is aggravated by daily activities. Relieving factors include changing positions, heat, rx meds and massage. Abdominal pain (comments) Eliezer rodríguez is here for follow up and medications refill for ongoing abdominal pain.Migraines and vomiting well managed with medications. Some increased abdominal pain r/t menstrual cycle. Ongoing elevated back pain. Remains interested in updated PT and imaging. She has not yet be able to register for the medical cannabis program d/t cost. No further questions or concerns. Abdominal pain (comments) Eliezer rodríguez is here for follow up and medications refill for ongoing abdominal pain. Denies any recent changes to her pain. She has not yet completed certified for medical cannabis but will plan to do so soon. Does note some improvements with vomiting with her new acupuncture piercing. Patient did not specify a percentage pain relief with medication. Denies side effects from current medication regimen. Takes Oxycodone 5mg PRN- #120 tablets had lasted about 4 months. Topamax and propranolol continues to provided benefit. No other concerns today. Abdominal pain Severity is 2. D uration is chronic. It occurs constantly. The problem is unchanged. Location is diffuse and back. The patient describes it as aching and sharp. Symptom is aggravated by bending, lifting, housework and prolonged positions. Relieving factors include rest, changing positions, chiropractic, heat, lying andmeds. Abdominal pain (comments) Eliezer rodríguez is here for follow up and medications refill for ongoing abdominal pain. Denies any recent changes to her pain. She has not yet completed certification for medical cannabis but will plan to do so soon. Reports decreased frequency of vomiting this month but c/o increased hot flashesPatient presents with no medication- due out 11/24. Medications bring pain level down from 8 to 3 out of 10. Denies side effects from current medication regimen. States she has decreased Topiramate from TID to BID due to SE of nightmares. Medications continue to provide pain relief and allow her to do everyday tasks. No other concerns today. Abdominal pain Severity is 3. D uration is chronic. It occurs constantly. The problem is unchanged. Location is diffuse. The patient describes it as aching. Symptom is aggravated by bending over, lifting, housework, movement and prolonged positions. Relieving factors include changing positions, chiropractic, ice, meds and lying. Abdominal pain (comments) Indira i s here for follow up and medications refill. She has not been able to start use of medical cannabis as she has been waiting until her 's next paycheck to pay for the registration fee. She does admits that she has been utilizing recreational cannabis for the meantime. She is requesting to have [facility] assume management of her opioid medications as discussed last OV. Has trialed Topamax which provides relief and open into titrating up. No other concerns today. Abdominal pain Severity is 4. D uration is chronic. It occurs constantly. The problem is unchanged. Location is LLQ, RLQ. The patient describes it as aching and bloating. Relieving factors include rest, medications and cannabis. Abdominal pain (comments) Indira i s in for an initial consult referred by her PCP, Dr. Krunal Yan of [facility]. 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 Her condition had a sudden onset approx. 7 months ago.Indira has not participated in PT for her condition. She has also not tried injections in the past. Indira is currently taking Zofran for nausea. NSAIDs she has tried includes ibuprofen. She has tried hydrocodone and tramadol in the past. Has not tried any neuropathics or muscle relaxants. She is interested in trying medical cannabis for her pain as she believes it will provide her with relief without having to take opioid medications. Admits to using recreational marijuana which provides her with relief. Abdominal pain Severity is 5. D uration is > 1 hour. It occurs constantly. The problem is unchanged. Location is LUQ, RUQ, LLQ, RLQ. The patient describes it as aching and sharp. Functional Status Date Functional Assessmen t No Information Instructions Date Instruction Additional Infor mation No Information Assessments Type Assessment Date No Information Patient Care Teams Name Effective Dates (start - stop) Status Members No Information
--- OUTSIDE RECORDS SUMMARY | 2022-07-26 05:58 | XMS_ITS | Continuity of Care Document ---
Author Name Unknown Organization [facility] zacarias Address [address] [place] [address] Phone Care Team Providers Care Nursing Teacher Name Role Phone Zina Hahn DO Unavailable [...] Diagnoses Date Provider Providers Copied on Encounter [facility], [address], [place], [id number] , [place] tel:[phone] [facility] [place] Pain in right hipPain in left hip 3 Jovani Izaguirre. [address] [place], [place], [id number], [place]. tel:[phone] Referring Provider: Cali White, [address] [place] [address], [id number]. tel:[phone] [facility], [address] [place] [address], [id number] , [place] tel:[phone] [facility] [place] Pain in left hipPain in right hip Jun- 3 Dago Katherine. [address] [place] [address], [id number], [place]. tel:[phone] [place] [address] Pain Clinic, [address] [place] [address], [id number] , [place] tel:[phone] [facility] [place] No Information 3 Dago Katherine. [address] [place] [address], [id number], [place]. tel:[phone] OFFICE/OUTPAT IENT VISIT, EST [facility], [address] [place] [address], [id number] , [place] tel:[phone] [facility] [place] right hip pain (chief complaint) Chronic migraine without aura, intractable, without status migrainosusCyc lical vomiting w/ refractory migraineChroni c pain syndromePain in left shoulderPain in left hipPain in right hipSacroiliiti s, not elsewhere classifiedLow back pain, unspecifiedTro chanteric bursitis, right hipTrochanteri c bursitis, left hipMyalgia, other siteGeneralize d abdominal painOther shelter (current) drug therapyEncount er for therapeutic drug level monitoring 3 Dago Katherine. [address] [place] [address], [id number], [place]. tel:[phone] Referring Provider: Cali White, [address] [place] [address], [id number]. tel:[phone] [facility], [address] [place] [address], [id number] , [place] [phone] [facility] Pain in right hipPain in left hip 2 Jesse Stallworth. [address] [place] [address], [id number], [place]. tel:[phone] Referring Provider: Cali White, [address] [place] [address], [id number]. tel:[phone] OFFICE VISIT, EST TELEMEDICINE [facility], [address] [place] [address], [id number] , [place] [phone] [facility] Lori right hip pain (chief complaint) Chronic migraine without aura, intractable, without status migrainosusCyc lical vomiting w/ refractory migraineChroni c pain syndromePain in left shoulderSacroi liitis, not elsewhere classifiedLow back pain, unspecifiedTro chanteric bursitis, right hipTrochanteri c bursitis, left hipMyalgia, other siteGeneralize d abdominal painOther petroleum terminal plant operator (current) drug therapyPain in left hipPain in right hip 0 2 Dago Katherine. [address] [place] [address], [id number], [place]. tel:[phone] Referring Provider: Cali White, [address] [place] [address], [id number]. tel:[phone] [facility], [address] [place] [address], [id number] , [place] tel:[phone] [facility] Low back pain, unspecifiedTro chanteric bursitis, left hipTrochanteri c bursitis, right hip 2 Dago Katherine. [address] [place] [address], [id number], [place]. tel:[phone] OFFICE/OUTPAT IENT VISIT, [facility], [address] [place] [address], [id number] , [place] [phone] [facility] [place] right hip pain (chief complaint) Cyclical vomiting w/ refractory migraineChroni c pain syndromePain in left shoulderSacroi liitis, not elsewhere classifiedLow back pain, unspecifiedTro chanteric bursitis, right hipTrochanteri c bursitis, left hipGeneralized abdominal painOther petroleum terminal plant operator (current) drug therapyMyalgia , other siteChronic migraine without aura, intractable, without status migrainosus 2 Dago Katherine. [address] [place] [address], [id number], [place]. tel:[phone] Referring Provider: Cali White, [address] [place] [address], [id number]. tel:[phone] [facility], [address] [place] [address], [id number] , [place] tel:[phone] [facility] Trochanteric bursitis, right hipTrochanteri c bursitis, left hip Apr-2 0 2 Jesse Stallworth. [address] [place] [address], [id number], [place]. tel:[phone] Referring Provider: Cali White, [address] [place] [address], [id number]. tel:[phone] [facility], [address] [place] [address], [id number] , [place] tel:[phone] [facility] Trochanteric bursitis, left hipTrochanteri c bursitis, right hip Apr-0 2 Dago Katherine. [address] [place] [address], [id number], [place]. tel:[phone] [facility], [address] [place] [address], [id number] , [place] tel:[phone] [facility] [place] No Information 2 Jesse Stallworth. [address] [place] [address], [id number], [place]. tel:[phone] Referring Provider: Cali White, [address] [place] [address], [id number]. tel:[phone] OFFICE VISIT, EST TELEMEDICINE [facility], [address] [place] [address], [id number] , [place] tel:[phone] [facility] [place] right hip pain (chief complaint) Chronic pain syndromeGenera lized abdominal painCyclical vomiting w/ refractory migraineLow back pain, unspecifiedPai n in left shoulderSacroi liitis, not elsewhere classifiedOthe r petroleum terminal plant operator (current) drug therapyTrochan teric bursitis, right hipTrochanteri c bursitis, left hip 1 Dago Katherine. [address] [place] [address], [id number], [place]. tel:[phone] OFFICE VISIT, EST TELEMEDICINE [facility], [address] [place] [address], [id number] , [place] tel:[phone] [facility] [place] right hip pain (chief complaint) Chronic pain syndromeGenera lized abdominal painCyclical vomiting w/ refractory migraineLow back painPain in left shoulderSacroi liitis, not elsewhere classifiedOthe r shelter (current) drug therapy 1 Dago Katherine. [address] [place] [address], [id number], [place]. tel:[phone] Referring Provider: Cali White, [address] [place] [address], [id number]. tel:[phone] OFFICE VISIT, EST TELEMEDICINE [facility], [address] [place] [address], [id number] , [place] tel:[phone] [facility] right hip pain (chief complaint) Chronic pain syndromeGenera lized abdominal painCyclical vomiting w/ refractory migraineLow back painPain in left shoulderOther shelter (current) drug therapySacroil iitis, not elsewhere classified 1 Dago Katherine. [address] [place] [address], [id number], [place]. tel:[phone] Referring Provider: Cali White, [address] [place] [address], [id number]. tel:[phone] [facility], [address] [place] [address], [id number] , [place] tel:[phone] [facility] [place] Sacroiliitis, not elsewhere classified 1 Jovani Izaguirre. [address] [place] [address], [id number], [place]. tel:[phone] Referring Provider: Cali White, [address] [place] [address], [id number]. tel:[phone] OFFICE/OUTPAT IENT VISIT, [facility], [address] [place] [address], [id number] , [place] tel:[phone] [facility] right hip pain (chief complaint) Sacroiliitis, not elsewhere classifiedChro zacarias pain syndromeGenera lized abdominal painCyclical vomiting w/ refractory migraineLow back painPain in left shoulderOther petroleum terminal plant operator (current) drug therapy 0- 1 Tata Jay. [address] [place] [address], [id number], [place]. tel:[phone] Referring Provider: Cali White, [address] [place] [address], [id number]. tel:[phone] OFFICE VISIT, [facility], [address] [place] [address], [id number] , [place] tel:[phone] [facility] Abdominal pain (chief complaint) Chronic pain syndromeGenera lized abdominal painCyclical vomiting w/ refractory migraineLow back painPain in left shoulderLong term (current) use of opiate analgesic 0 Dago Katherine. [address] [place] [address], [id number], [place]. tel:[phone] Referring Provider: Cali White, [address] [place] [address], [id number]. tel:[phone] OFFICE VISIT, [facility], [address] [place] [address], [id number] , [place] tel:[phone] [facility] Abdominal pain (chief complaint) Chronic pain syndromeGenera lized abdominal painCyclical vomiting w/ refractory migraineLow back painLong term (current) use of opiate analgesicPain in left shoulder 0 Dago Katherine. [address] [place] [address], [id number], [place]. tel:[phone] Referring Provider: Cali White, [address] [place] [address], [id number]. tel:[phone] OFFICE VISIT, [facility], [address] [place] [address], [id number] , [place] tel:[phone] [facility] Abdominal pain (chief complaint) Chronic pain syndromeGenera lized abdominal painCyclical vomiting w/ refractory migraineLow back painLong term (current) use of opiate analgesic 0 Dago Katherine. [address] [place] [address], [id number], [place]. tel:[phone] Referring Provider: Cali White, [address] [place] [address], [id number]. tel:[phone] OFFICE/OUTPAT IENT VISIT, [facility], [address] [place] [address], [id number] , [place] tel:[phone] [facility] [place] Abdominal pain (chief complaint) Chronic pain syndromeGenera lized abdominal painCyclical vomiting w/ refractory migraineLong term (current) use of opiate analgesicLow back painEncounter for therapeutic drug level monitoring 0 Dago Katherine. [address] [place] [address], [id number], [place]. tel:[phone] Referring Provider: Cali White, [address] [place] [address], [id number]. tel:[phone] OFFICE/OUTPAT IENT VISIT, [facility], [address] [place] [address], [id number] , [place] tel:[phone] [facility] [place] Abdominal pain (chief complaint) Generalized abdominal painCyclical vomiting w/ refractory migraineLong term (current) use of opiate analgesic Sep-0 -201 9 Dago Katherine. [address] [place] [address], [id number], [place]. tel:[phone] Referring Provider: Cali White, [address] [place] [address], [id number]. tel:[phone] OFFICE/OUTPAT IENT VISIT, [facility], [address] [place] [address], [id number] , [place] tel:[phone] [facility] [place] Abdominal pain (chief complaint) Generalized abdominal painCyclical vomiting w/ refractory migraineOther shelter (current) drug therapyLong term (current) use of opiate analgesic Dago Katherine. [address] [place] [address], [id number], [place]. tel:[phone] Referring Provider: Cali White, [address] [place] [address], [id number]. tel:[phone] OFFICE/OUTPAT IENT VISIT, [facility], [address] [place] [address], [id number] , [place] tel:[phone] [facility] [place] Abdominal pain (chief complaint) Chronic pain syndromeEncoun ter for therapeutic drug level monitoringOthe r shelter (current) drug therapyGeneral ized abdominal painCyclical vomiting w/ refractory migraine 9 No Information Referring Provider: ANNEL Castillo [place] [address], [place], [address]. tel:[phone] Family History Family Member Type Diagnosis Age At Onset No Information Payers Payer name Insurance type Covered libertarian ID Authoriza brenda(s) Blue Plus Medicaid [id number] Social History Type Description Quantity Date Captured Comments Sex Female Smoking Status No Information Chief Complaint And Reason For Visit No Information Reason For Referral Reason For Referral No Information Plan Of Treatment Date Type Action Status Goal Order Annual PT. Due on due Goal AST (SGOT). Due on due Goal OARS. Due on due Goal BELL MAKER Scanned. Due on 023 due Goal Creatinine. Due on due Goal ALT (SGPT). Due on due Goal ELECTRONIC PLOTTING SYSTEM OPERATOR Paperwork. Due on due Goal UDT. Due [...] due Goal OARS. Due on due Goal ELECTRONIC PLOTTING SYSTEM OPERATOR Paperwork. Due on due Goal UDT. Due on due Goal ALT (SGPT). Due on due Goal AST (SGOT). Due on due Goal BELL MAKER Scanned. Due on due Goal Creatinine. Due [...] Medication Recon ciliation. Due on due Goal BELL MAKER Scanned. Due on due Goal UDT. Due on due Goal ALT (SGPT). Due on due Goal Order Annual PT. Due on due Goal Creatinine. Due on due Goal OARS. Due on due Goal ELECTRONIC PLOTTING SYSTEM OPERATOR Paperwork. Due on due Goal AST (SGOT). [...] due Goal UDT. Due on due Goal ELECTRONIC PLOTTING SYSTEM OPERATOR Paperwork. Due on due Goal OARS. Due on due Goal Creatinine. Due on due Goal BELL MAKER Scanned. Due on due Goal AST (SGOT). [...] Goal PHQ-9. Due on du e Goal BELL MAKER Scanned. Due on due Goal Creatinine. Due on due Goal ELECTRONIC PLOTTING SYSTEM OPERATOR Paperwork. Due on due Goal ALT (SGPT). [...] Medication Recon ciliation. Due on due Goal ELECTRONIC PLOTTING SYSTEM OPERATOR Paperwork. Due on due Goal UDT. Due on due Goal Order Annual PT. Due on due Goal BELL MAKER Scanned. Due on due Goal AST (SGOT). [...] due Goal Creatinine. Due on due Goal ELECTRONIC PLOTTING SYSTEM OPERATOR Paperwork. Due on due Goal Order Annual PT. Due on due Goal BELL MAKER Scanned. Due on due Goal AST (SGOT). [...] Goal AST (SGOT). Due on due Goal ELECTRONIC PLOTTING SYSTEM OPERATOR Paperwork. Due on due Goal OARS. Due on due Goal BELL MAKER Scanned. Due on due Goal Order Annual [...] Goal AST (SGOT). Due on due Goal ELECTRONIC PLOTTING SYSTEM OPERATOR Paperwork. Due on due Goal OARS. Due on due Goal BELL MAKER Scanned. Due on due Goal Order Annual PT. Due on due Goal Creatinine. Due on due Referral Ordered: MRI LUMBAR SPINE W/O DYE ordered Future Order: Lab Order COMPLIAN CE DRUG ANALYSIS, URINE, WITH MED REPORT ([id number]), Ordered on: Ordered Future Order: Lab Order [...] with benefit. Requesting to repeat these through [facility] when able. Participates in HEP as [...] Inquires if she can pursue these through [facility]. Participates in HEP as able. Actively [...] with Dr. Sukumar Pettit at [facility]. Abdominal and L shoulder pain is overall [...] the meantime. She is requesting to have [facility] assume management of her opioid [...] by her PCP, Dr. Krunal Yan of [facility]. She presents with a genetic nerve [...]
--- OUTSIDE RECORDS SUMMARY | 2022-07-26 05:58 | XMS_ITS | Continuity of Care Document ---
Author Name Unknown Organization [facility] Address [address] [address] [place] [address] Phone Care Team Providers Care Fiber Optics Technician Name Role Phone Chris Lucero MD Unavailable [...] Diagnoses Date Provider Providers Copied on Encounter [facility], [address] [address], [place], [id number], [place] tel:[phone] [facility] No Information 0 Nic Perez. [address] [place] [address], [facility], [facility] [place], [id number] , [place]. tel: [phone] [facility], [address] [address], [place], [id number], [place] tel:[phone] [facility] No Information 0 Nic Perez. [address] [place] [address], [place] [address], [place], [id number] , [place]. tel: [phone] [facility], [address] [address], [place], [id number], [place] tel:[phone] [facility] Cyclical vomiting, not intractableDiarrhe a, unspecifiedNausea with vomiting, unspecifiedLower abdominal pain, unspecifiedDiarrhe a, unspecified 9 Nic Perez. [address] [place] [address], [place] [address], [facility] [place], [id number] , [place]. tel: [phone] Referring Provider: Referral Self. Office Cons New/estab Mod [facility], [address] [address], [place], [id number], [place] tel:[phone] [facility] GI Symptoms or Concerns (chief complaint) Lower abdominal painDiarrhea, unspecified typeNon-intractabl e cyclical vomiting with nauseaDietary counseling and surveillance 9 Nic Perez. [address] [place] [address], [place] [address], [facility] [place], [id number] , [place]. tel: [phone] Referring Provider: Krunal Salcido, [address] [place] [address], [id number]. tel:[phone] Family History Family Member Type Diagnosis Age At Onset Father Problem (finding) diabetes mellitus type 2 Payers Payer name Insurance type Covered republican ID Del gutierrez(s) [place] [facility] [id number] Social History Type Description Quantity Date Captured [...] admit patients who are paraplegic or in care home for inpatient colonoscopy preparation, but aside from [...]
[2022-07-26 05:59] LABS: Chloride* 107 mmol/L (96-114); Potassium* 3.7 mmol/L (3.6-5.1); Sodium* 138 mmol/L (135-149)
[2022-07-26 06:00] VITALS: TEMP 36.9; O2SAT 99
[2022-07-26 06:02] LABS: Blood Urea Nitrogen* 16 mg/dL (5-24); Carbon Dioxide* 22 mmol/L (20-32); Est. Creatinine Clearance* 91.38; Estimated Glomerular Filt Rate 79 ml/min
[2022-07-26 06:03] LABS: Calcium* 9.1 mg/dL (8.4-10.6); Glucose* 162 mg/dL (60-115)
[2022-07-26 06:05] LABS: C Reactive Protein* 2.2 mg/dL (0.5-1.0)
[2022-07-26] MEDS: MORPHINE 4 MG/ML INJ IVP (06:24)
[2022-07-26 06:52] VITALS: BP 118/74; PULSE 74; RESP 18; TEMP 36.7; O2SAT 99
[2022-07-26 06:53] VITALS: BP 118/74; PULSE 74; RESP 18; TEMP 36.7
== END 2022-07-26 06:53 | disposition home or self-care (01) ==
PROVIDERS: Emergency Provider Emergency Medicine; PCP Surgery
DX: N20.1 Calculus of ureter (principal)
CPT/HCPCS: 36415; 74176; 80048; 81001; 81025; 85025; 86140; 94761; 96374; 96375; 99284; J1885; J2270; J2405; J7030

== ENCOUNTER 2023-04-19 13:15 | Outpatient (RCR) | payer BC, OTHER, SELFPAY ==
--- NOTE | 2023-04-19 10:44 | PT.OPDNX ---
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 Pt would like to work on following up with hips but also has chronic LBP and pain up the upper back. Has c.o neck pain and pain into the upper arms as well. Can have tingling down both arms and both legs. Pain at hips is both the lateral hip and groin pain. After the interior injection there was still some pain but then the bursa injections helped even more. No about 80% of the time she is pain free. Pain at the sides of her low back and also up between her shoulder blades. Neck pain is more L than R. Pain Comments 09/25 Preferred Name Neymar Objective Other/Pertinent Objective SLR negative bilat Segmental testing: UPAs painful L c4-7 and bilat L4-5 Functional Test Performed & Score LEFS - 41 Patient Instructed in Risks/Benefits Yes Therapeutic Exercise Therapeutic Exercise Minutes (minutes) 24 Therapeutic Exercise: To Restore Access Code: [email or web address] Functional Status URL: [email or web address] Guide/ Date: 04/06/2023 Prepared by: Sukumar Hall Exercises - Supine Lower Trunk Rotation - 1 x daily - 7 x weekly - 1 sets - 15 reps - Supine Piriformis Stretch Pulling Heel to Hip - 1 x daily - 7 x weekly - 1 sets - 3 reps - 15 hold - Active Straight Leg Raise with Quad Set - 1 x daily - 7 x weekly - 2 sets - 10 reps - Supine March - 1 x daily - 7 x weekly - 2 sets - 10 reps - Clamshell with Resistance - 1 x daily - 7 x weekly - 2 sets - 10 reps Treatment Minutes Untimed Code Treatment Minutes 30 Timed Code Treatment Minutes 24 Total Treatment Time 54 Billing Units Therapeutic Exercise Units 2 Assessment/Impression Assessment/Impression Pt presents to the clinic with long standing issues of LBP, bilat hip pain, neck pain and upper back pain. 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 Skilled PT is necessary to incorporate ther ex, nm cruz, ther act, manual therapy and pt education to decrease pain and improve functional mobility. Plan of Care Physical Therapy Goals 1. Pt will be independent with HEP in 8 weeks. 2. Pt will sit for emelia greater than 1 hour with 75% decrease in pain in 10 weeks. 3. Pt will walk for exer x 30 min with no more than 2/10 pain in 12-14 weeks. Daily Plan of Care Continue per POC Recertification Information Provider Signature Shows Agreement With POC & Medical Necessity
== END 2023-08-04 11:15 | disposition home or self-care (01) ==
PROVIDERS: PCP Surgery; Visit Provider Nurse Practitioner Adult Health
DX: M54.50 Low back pain, unspecified (principal); M25.551 Pain in right hip; M25.552 Pain in left hip; Z51.89 Encounter for other specified aftercare
CPT/HCPCS: 97110; 97140; 97163